=== PATIENT | female | born 1955 | race Two or more races ===

== ENCOUNTER → 2024-05-19 | Outpatient (CLI) | payer OTHER, MEDICAID ==
[~2024-05-19] VITALS: Ht 157.5 cm; Wt 42.6 kg
[2024-05-19] MEDS: REGADENOSON 0.4 MG/5 ML SYRG IV ONE ×2 (11:38→11:39)
== END | disposition home or self-care (01) ==
LOC: XY 10:18
PROVIDERS: ATTEND Internal Medicine
DX: Z01.810 Encounter for preprocedural cardiovascular examination (principal); R42 Dizziness and giddiness; R06.02 Shortness of breath; Z87.891 Personal history of nicotine dependence
CPT/HCPCS: 93017; J2785

== ENCOUNTER → 2025-01-29 | Outpatient (CLI) | payer OTHER, MEDICAID ==
[~2025-01-29] VITALS: Ht 157.5 cm; Wt 43.1 kg
[~2025-01-29] MED LIST: ALBUAER3 IN; ALEN70TA74 PO; BACL20TA PO; CHOL100047 PO; ESCI1TAB36 PO; FLUT1AER17 IN; FREM225I2 SC; GABA-339 PO; HYDR-4795 PO; IPRA0.03; MAGN400T40 PO; MECL12.586 PO; TRAZ-228 PO
== END | disposition home or self-care (01) ==
LOC: LAB 13:37 → EDSTATUS 02-02 07:00
PROVIDERS: ATTEND Orthopaedic Surgery
DX: M48.02 Spinal stenosis, cervical region (principal); Z53.8 Procedure and treatment not carried out for other reasons; I10 Essential (primary) hypertension; J44.9 Chronic obstructive pulmonary disease, unspecified; Z79.899 Other long term (current) drug therapy; Z98.890 Other specified postprocedural states
CPT/HCPCS: 86850; 86900; 86901